=== PATIENT | male | born 1965 | race Caucasian/White ===

== ENCOUNTER 2023-07-15 21:14 | Inpatient (IN) | payer OTHER, MEDICAID ==
[~2023-07-15] VITALS: Ht 167.6 cm; Wt 99.3 kg
[2023-07-15 21:24] VITALS: BP_SYST 98; PULSE 102; RESP 18; TEMP 98.3
[2023-07-15 22:04] LABS: BASOPHILS # (AUTO) 0.1 K/uL (0.0-0.2); BASOPHILS % (AUTO) 0.9 % (0.0-2.0); EOSINOPHILS # (AUTO) 0.5 K/uL (0.0-0.4); EOSINOPHILS % (AUTO) 5.5 % (0.0-4.0); HEMATOCRIT 35.1 % (36-54); HEMOGLOBIN 11.5 g/dL (14.0-18.0); LYMPHOCYTES # (AUTO) 2.9 K/uL (1.0-5.5); LYMPHOCYTES % (AUTO) 32.2 % (20.5-51.5); MEAN CORPUSCULAR HEMOGLOBIN 31 pg (27-31); MEAN CORPUSCULAR HGB CONC 33 % (32-36); MEAN CORPUSCULAR VOLUME 95 fL (79.0-98.0); MONOCYTES # (AUTO) 0.7 K/uL (0.0-1.0); MONOCYTES % (AUTO) 7.6 % (1.7-9.3); NEUTROPHILS # (AUTO) 4.8 K/uL (1.8-7.7); NEUTROPHILS % (AUTO) 53.8 % (40.0-70.0); PLATELET COUNT (AUTO) 123 K/uL (130-430); RED BLOOD CELL COUNT(AUTO) 3.69 MIL/uL (4.2-6.2); RED CELL DISTRIBUTION WIDTH 15.5 % (9.0-15.0); WHITE BLOOD COUNT (AUTO) 8.9 K/uL (4.8-10.8)
[2023-07-15 22:39] LABS: ALANINE AMINOTRANSFERASE 39 U/L (12-78); ALBUMIN 3.4 g/dL (3.4-4.8); ALCOHOL, BLOOD 211 mg/dL (<10); ANION GAP 16 (5-15); ASPARTATE AMINOTRANSFERASE 35 U/L (10-37); BILIRUBIN,DIRECT 0.1 mg/dL (0.0-0.3); CALCIUM 8.9 mg/dL (8.4-11.0); CARBON DIOXIDE 24 mmol/L (23-29); CHLORIDE 97 mmol/L (98-107); CREATINE KINASE, TOTAL 160 U/L (39-308); GFR AFRICAN AMERICAN 8 mL/min (>90); GLUCOSE 187 mg/dL (74-106); POTASSIUM 4.5 mmol/L (3.5-5.1); SALICYLATE 2 mg/dL (3-30); SODIUM SERUM 137 mmol/L (136-145); TOTAL BILIRUBIN 0.3 mg/dL (0.0-1.0); TOTAL PROTEIN, SERUM 6.7 g/dL (6.4-8.3); UREA NITROGEN, BLOOD 49 mg/dL (8-21)
[2023-07-15 22:48] LABS: ACETAMINOPHEN < 1 ug/mL (1-30); GFR NON AFRICAN-AMERICAN 7 mL/min (>90)
[2023-07-15 22:49] LABS: CREATININE 8.79 mg/dL (0.55-1.30)
[2023-07-15] MEDS ORDERED: VANCOMYCIN HCL 1,000 MG in NS 250 ML IV ONE (23:30)
[2023-07-15] MEDS ORDERED: PIPERACILLIN/TAZO 3.375 GM in NS 50 ML IV ONE (23:30)
[2023-07-15] MEDS ORDERED: NACL 0.9% 1,000 ML IV ONE (23:30)
[2023-07-15 23:43] LABS: INR 0.9 (0.80-1.20); PROTHROMBIN TIME 9.3 SECS (9.5-12.5)
[2023-07-16] MEDS ORDERED: LIDOCAINE 1% 10 MG/ML, 20 ML MDV INJ ONE
[2023-07-16] MEDS ORDERED: KETOROLAC TROMETHAMINE 15 MG VIAL IVP ONE
[2023-07-16 00:09] LABS: ACETONE, SERUM NEGATIVE (NEGATIVE)
[2023-07-16] MEDS ORDERED: PIPERACILLIN/TAZOBACTAM 3.375 GM/VIAL (ZOSYN) IV ONE (00:28)
[2023-07-16 01:08] LABS: BILIRUBIN,URINE NEGATIVE (NEGATIVE); CLARITY/URINE CLEAR (CLEAR); COLOR,URINE YELLOW (YELLOW); GLUCOSE,URINE NEGATIVE (NEGATIVE); KETONES,URINE NEGATIVE (NEGATIVE); LEUKOCYTE ESTERASE ,URINE NEGATIVE (NEGATIVE); NITRITE, URINE NEGATIVE (NEGATIVE); PROTEIN URINE 1+ (NEGATIVE); UROBILINOGEN,URINE 0.2 (0.2-1.0)
[2023-07-16] MEDS ORDERED: VANCOMYCIN HCL 1000 MG/VIAL IV ONE (01:11)
[2023-07-16 01:15] LABS: BARBITURATE, URINE NEGATIVE (NEG <=200); BENZODIAZEPINE, URINE NEGATIVE (NEG <=150); CANNABINOID, URINE NEGATIVE (NEG <=50); COCAINE, URINE NEGATIVE (NEG <=150); METHAMPHETAMINES SCREEN,URINE NEGATIVE (NEG <=500); OPIATE, URINE POSITIVE (NEG <=100); PHENCYCLIDINE SCREEN,URINE NEGATIVE (NEG <=25); UR TRICYCLIC ANTIDEPRESSANTS NEGATIVE (NEG <=300); URINE AMPHETAMINE NEGATIVE (NEG <=500); URINE METHADONE NEGATIVE (NEG <=200); URINE OXYCODONE SCREEN NEGATIVE (NEG <=100)
[2023-07-16 01:32] LABS: BLOOD, URINE TRACE (NEGATIVE)
[2023-07-16 01:45] LABS: BACTERIA,URINE None Seen /HPF (None Seen); WBC,URINE 0-3 /HPF (0-3)
[2023-07-16] MEDS ORDERED: MORPHINE 2 MG/ML INJ. SYRINGE IVP SCH (02:30)
[2023-07-16] MEDS ORDERED: INSULIN REGULAR, HUMAN 100 UNITS/ML, 3 ML VIAL (humuLIN R) SUBCUT PRN (02:30)
[2023-07-16] MEDS ORDERED: LORazepam 2 MG/ML VIAL IVP SCH (02:30)
[2023-07-16] MEDS ORDERED: MORPHINE 2 MG/ML INJ. SYRINGE IVP PRN (08:30)
[2023-07-16] MEDS ORDERED: ZOLPIDEM TARTRATE 5 MG TABLET PO PRN (08:30)
[2023-07-16] MEDS ORDERED: DEXTROSE 50% JECT 50 ML DISP.SYRIN IVP PRN (08:30)
[2023-07-16] MEDS ORDERED: NALOXONE HCL 0.4 MG/ML AMP (NARCAN) IVP PRN ×2 (08:30)
[2023-07-16] MEDS ORDERED: DOCUSATE SODIUM 100 MG CAPSULE PO PRN (08:30)
[2023-07-16] MEDS ORDERED: ACETAMINOPHEN 325 MG TABLET PO PRN ×3 (08:30→09:45)
[2023-07-16] MEDS ORDERED: INSULIN LISPRO SLIDING SCALE 100 UNITS/ML, 3 ML VIAL (humaLOG) SUBCUT PRN (08:30)
[2023-07-16] MEDS ORDERED: MAGNESIUM SULFATE 50 ML IV PRN (08:30)
[2023-07-16] MEDS ORDERED: POTASSIUM CHLORIDE 20 MEQ TABLET.ER PO PRN (08:30)
[2023-07-16] MEDS ORDERED: chlordiazePOXIDE HCL 10 MG CAPSULE PO PRN (08:30)
[2023-07-16] MEDS ORDERED: LORazepam 2 MG/ML VIAL IVP PRN (08:30)
[2023-07-16] MEDS ORDERED: ONDANSETRON HCL 4 MG/2 ML VIAL IVP PRN (08:30)
[2023-07-16] MEDS ORDERED: MUPIROCIN 2% TOPICAL OINTMENT 22 GM NS PRN (08:30)
[2023-07-16] MEDS ORDERED: FURO80TA3 PO (08:34)
[2023-07-16] MEDS ORDERED: FOLI-43 PO (08:34)
[2023-07-16] MEDS ORDERED: ERGO1250 PO (08:34)
[2023-07-16] MEDS ORDERED: SODI10PO PO (08:34)
[2023-07-16] MEDS ORDERED: HYDC1% TP (08:34)
[2023-07-16] MEDS ORDERED: CALC667C4 PO (08:34)
[2023-07-16] MEDS ORDERED: TAMS0.4C96 PO (08:34)
[2023-07-16] MEDS ORDERED: FAMO20TA8 PO (08:34)
[2023-07-16] MEDS ORDERED: LISI20TA30 PO (08:34)
[2023-07-16] MEDS ORDERED: SIMV-43 PO (08:34)
[2023-07-16] MEDS ORDERED: AMLO5TAB92 PO (08:34)
[2023-07-16] MEDS ORDERED: ASPI-1393 PO (08:34)
[2023-07-16] MEDS ORDERED: BLOO-1091 XX (08:34)
[2023-07-16] MEDS ORDERED: ALLO100T PO (08:34)
[2023-07-16] MEDS ORDERED: LABE200T9 PO (08:34)
[2023-07-16] MEDS ORDERED: ZINC50TA15 PO (08:34)
[2023-07-16] MEDS ORDERED: ACETAMINOPHEN 500 MG TABLET PO PRN ×3 (10:15)
[2023-07-16] MEDS: HEPARIN SODIUM,PORCINE 5,000 UNITS/ML VIAL SUBCUT SCH ×2 (10:21→22:04)
[2023-07-16 11:50] VITALS: BP_SYST 151; PULSE 78; RESP 18; TEMP 98.4; O2SAT 96
[2023-07-16 11:58] LABS: ALBUMIN 3.4 g/dL (3.4-4.8); CALCIUM 8.5 mg/dL (8.4-11.0); POTASSIUM 4.3 mmol/L (3.5-5.1); TOTAL BILIRUBIN 0.4 mg/dL (0.0-1.0); TOTAL PROTEIN, SERUM 6.7 g/dL (6.4-8.3)
[2023-07-16 12:05] LABS: CREATININE 9.64 mg/dL (0.55-1.30)
[2023-07-16 16:00] VITALS: BP_SYST 144; PULSE 71; RESP 18; TEMP 97.9; O2SAT 98
[2023-07-16 20:00] VITALS: BP_SYST 146; PULSE 78; RESP 18; TEMP 98.6; O2SAT 98
[2023-07-16] MEDS: MORPHINE 2 MG/ML INJ. SYRINGE IVP PRN (22:12)
[2023-07-17 00:10] VITALS: BP_SYST 117; PULSE 83; RESP 18; TEMP 99; O2SAT 98
[2023-07-17 05:41] LABS: BASOPHILS # (AUTO) 0.1 K/uL (0.0-0.2); BASOPHILS % (AUTO) 0.8 % (0.0-2.0); EOSINOPHILS # (AUTO) 0.5 K/uL (0.0-0.4); EOSINOPHILS % (AUTO) 7.2 % (0.0-4.0); HEMATOCRIT 29.8 % (36-54); HEMOGLOBIN 10.1 g/dL (14.0-18.0); LYMPHOCYTES # (AUTO) 1.2 K/uL (1.0-5.5); LYMPHOCYTES % (AUTO) 19.1 % (20.5-51.5); MEAN CORPUSCULAR HEMOGLOBIN 31 pg (27-31); MEAN CORPUSCULAR HGB CONC 34 % (32-36); MEAN CORPUSCULAR VOLUME 93 fL (79.0-98.0); MONOCYTES # (AUTO) 0.4 K/uL (0.0-1.0); MONOCYTES % (AUTO) 6.3 % (1.7-9.3); NEUTROPHILS # (AUTO) 4.2 K/uL (1.8-7.7); NEUTROPHILS % (AUTO) 66.6 % (40.0-70.0); PLATELET COUNT (AUTO) 103 K/uL (130-430); RED BLOOD CELL COUNT(AUTO) 3.22 MIL/uL (4.2-6.2); RED CELL DISTRIBUTION WIDTH 14.8 % (9.0-15.0); WHITE BLOOD COUNT (AUTO) 6.3 K/uL (4.8-10.8)
[2023-07-17 06:01] LABS: CALCIUM 7.6 mg/dL (8.4-11.0); POTASSIUM 3.9 mmol/L (3.5-5.1)
[2023-07-17 08:30] VITALS: BP_SYST 151; PULSE 78; RESP 18; TEMP 97.7; O2SAT 98
[2023-07-17] MEDS ORDERED: CHLO10CA7 PO (08:34)
[2023-07-17] MEDS: MORPHINE 2 MG/ML INJ. SYRINGE IVP PRN ×2 (08:37→21:14)
[2023-07-17 10:15] LABS: CREATININE 11.23 mg/dL (0.55-1.30)
[2023-07-17] MEDS ORDERED: VITAMIN B COMPLEX WITH C TAB/CAP GT ONE (10:15)
[2023-07-17 10:33] VITALS: O2SAT 98
[2023-07-17] MEDS: CALCIUM ACETATE 667 MG CAP PO SCH ×2 (11:44→17:42)
[2023-07-17] MEDS: HEPARIN SODIUM,PORCINE 5,000 UNITS/ML VIAL SUBCUT SCH ×2 (11:51→22:24)
[2023-07-17 12:38] VITALS: BP_SYST 130; PULSE 70; RESP 16; TEMP 97.4; O2SAT 100
[2023-07-17 16:49] VITALS: BP_SYST 132; PULSE 74; RESP 17; TEMP 97.8; O2SAT 99
[2023-07-17 20:10] VITALS: BP_SYST 140; PULSE 75; RESP 20; TEMP 98.4; O2SAT 99
[2023-07-18 01:01] VITALS: BP_SYST 131; PULSE 74; RESP 22; TEMP 97.8; O2SAT 98
[2023-07-18 05:37] LABS: BASOPHILS % (AUTO) 0.5 % (0.0-2.0); EOSINOPHILS # (AUTO) 0.4 K/uL (0.0-0.4); HEMATOCRIT 31.4 % (36-54); HEMOGLOBIN 10.5 g/dL (14.0-18.0); LYMPHOCYTES # (AUTO) 1.8 K/uL (1.0-5.5); LYMPHOCYTES % (AUTO) 27.9 % (20.5-51.5); MEAN CORPUSCULAR HEMOGLOBIN 31 pg (27-31); MEAN CORPUSCULAR HGB CONC 34 % (32-36); MEAN CORPUSCULAR VOLUME 93 fL (79.0-98.0); MONOCYTES # (AUTO) 0.6 K/uL (0.0-1.0); MONOCYTES % (AUTO) 9.1 % (1.7-9.3); NEUTROPHILS # (AUTO) 3.5 K/uL (1.8-7.7); NEUTROPHILS % (AUTO) 55.5 % (40.0-70.0); PLATELET COUNT (AUTO) 101 K/uL (130-430); RED BLOOD CELL COUNT(AUTO) 3.37 MIL/uL (4.2-6.2); RED CELL DISTRIBUTION WIDTH 14.9 % (9.0-15.0); WHITE BLOOD COUNT (AUTO) 6.4 K/uL (4.8-10.8)
[2023-07-18 06:09] LABS: CALCIUM 8.3 mg/dL (8.4-11.0); POTASSIUM 4.3 mmol/L (3.5-5.1)
[2023-07-18 06:14] LABS: CREATININE 9.18 mg/dL (0.55-1.30)
[2023-07-18 08:00] VITALS: BP_SYST 151; PULSE 69; RESP 18; TEMP 96.1; O2SAT 98; O2SAT 99
[2023-07-18] MEDS: CALCIUM ACETATE 667 MG CAP PO SCH ×3 (08:39→17:53)
[2023-07-18] MEDS: lisinopriL 20 MG TABLET PO SCH (08:39)
[2023-07-18] MEDS: FOLIC ACID 1 MG TABLET PO SCH (08:40)
[2023-07-18] MEDS: amLODIPine BESYLATE 5 MG TABLET PO SCH (08:40)
[2023-07-18] MEDS: ALLOPURINOL 100 MG TABLET (ZYLOPRIM) PO SCH (08:40)
[2023-07-18] MEDS: HEPARIN SODIUM,PORCINE 5,000 UNITS/ML VIAL SUBCUT SCH ×2 (08:43→21:12)
[2023-07-18] MEDS: VITAMIN B COMPLEX WITH C TAB/CAP GT SCH (08:43)
[2023-07-18] MEDS: MORPHINE 2 MG/ML INJ. SYRINGE IVP PRN ×2 (08:45→21:23)
[2023-07-18 12:00] VITALS: BP_SYST 137; PULSE 88; RESP 18; O2SAT 98
[2023-07-18 16:32] VITALS: BP_SYST 121; PULSE 76; RESP 17; TEMP 97.7; O2SAT 98
[2023-07-18 20:00] VITALS: BP_SYST 132; PULSE 71; RESP 18; TEMP 98.8; O2SAT 100
[2023-07-18 21:34] VITALS: O2SAT 100
[2023-07-19] VITALS: BP_SYST 140; PULSE 69; TEMP 98.6
[2023-07-19 00:40] VITALS: BP_SYST 132; PULSE 71; RESP 18; TEMP 98.8; O2SAT 100
[2023-07-19 05:40] LABS: BASOPHILS % (AUTO) 0.5 % (0.0-2.0); EOSINOPHILS # (AUTO) 0.5 K/uL (0.0-0.4); EOSINOPHILS % (AUTO) 6.7 % (0.0-4.0); HEMATOCRIT 31.8 % (36-54); HEMOGLOBIN 10.6 g/dL (14.0-18.0); LYMPHOCYTES # (AUTO) 1.9 K/uL (1.0-5.5); MEAN CORPUSCULAR HEMOGLOBIN 31 pg (27-31); MEAN CORPUSCULAR HGB CONC 33 % (32-36); MEAN CORPUSCULAR VOLUME 93 fL (79.0-98.0); MONOCYTES # (AUTO) 0.6 K/uL (0.0-1.0); MONOCYTES % (AUTO) 8.9 % (1.7-9.3); NEUTROPHILS # (AUTO) 3.8 K/uL (1.8-7.7); NEUTROPHILS % (AUTO) 55.9 % (40.0-70.0); PLATELET COUNT (AUTO) 104 K/uL (130-430); RED BLOOD CELL COUNT(AUTO) 3.42 MIL/uL (4.2-6.2); WHITE BLOOD COUNT (AUTO) 6.9 K/uL (4.8-10.8)
[2023-07-19 06:08] LABS: CALCIUM 8.7 mg/dL (8.4-11.0); POTASSIUM 4.6 mmol/L (3.5-5.1)
[2023-07-19 06:53] LABS: CREATININE 11.18 mg/dL (0.55-1.30)
[2023-07-19 08:00] VITALS: BP_SYST 110; PULSE 71; RESP 18; TEMP 97.9; O2SAT 99
[2023-07-19] MEDS: MORPHINE 2 MG/ML INJ. SYRINGE IVP PRN (08:45)
[2023-07-19] MEDS: VITAMIN B COMPLEX WITH C TAB/CAP GT SCH (09:00)
[2023-07-19 10:57] VITALS: O2SAT 97
[2023-07-19] MEDS: lisinopriL 20 MG TABLET PO SCH (11:50)
[2023-07-19] MEDS: ALLOPURINOL 100 MG TABLET (ZYLOPRIM) PO SCH (11:50)
[2023-07-19] MEDS: FOLIC ACID 1 MG TABLET PO SCH (11:51)
[2023-07-19] MEDS: CALCIUM ACETATE 667 MG CAP PO SCH ×2 (11:51→12:00)
[2023-07-19] MEDS: amLODIPine BESYLATE 5 MG TABLET PO SCH (11:51)
[2023-07-19] MEDS: HEPARIN SODIUM,PORCINE 5,000 UNITS/ML VIAL SUBCUT SCH (11:54)
[2023-07-19 12:00] VITALS: BP_SYST 117; PULSE 69; RESP 18; TEMP 97.3; O2SAT 99
== END 2023-07-19 14:27 | disposition home or self-care (01) | DRG 917 ==
LOC: SED 21:14 → STU 07-16 02:19 → SMU 07-18 13:11
PROVIDERS: ADMIT General Practice; ATTEND General Practice
PROC: 0HQ1XZZ Repair Face Skin, External Approach (ICD-10-PCS; principal; 2023-07-16)
PROC: 5A1D70Z Performance of Urinary Filtration, Intermittent, Less than 6 Hours Per Day (ICD-10-PCS; 2023-07-17)
PROC: 5A1D70Z Performance of Urinary Filtration, Intermittent, Less than 6 Hours Per Day (ICD-10-PCS; 2023-07-18)
DX: T51.91XA Toxic effect of unspecified alcohol, accidental (unintentional), initial encounter (principal); G92.8 Other toxic encephalopathy; N17.0 Acute kidney failure with tubular necrosis; N18.6 End stage renal disease; E72.20 Disorder of urea cycle metabolism, unspecified; E87.20 Acidosis, unspecified; I12.0 Hypertensive chronic kidney disease with stage 5 chronic kidney disease or end stage renal disease; F10.10 Alcohol abuse, uncomplicated; S01.112A Laceration without foreign body of left eyelid and periocular area, initial encounter; Y90.9 Presence of alcohol in blood, level not specified; E11.22 Type 2 diabetes mellitus with diabetic chronic kidney disease; Z99.2 Dependence on renal dialysis
CPT/HCPCS: 36415; 70450-TC; 71045; 71250-TC; 72125-TC; 76376; 76870-TC; 80048; 80053; 80076; 80307; 81000; 81001; 81015; 82009; 82140; 82550; 82962; 83037; 83605; 83735; 83880; 84484; 85025; 85610-TC; 85730-TC; 87040; 90935; 90937; 93005; 96360; 97110-GP; 97116-GP; 97530-GP; 99291; G0378; G0480; G0481; G0482; J1644; J1885; J2270; J2543; J3370